=== PATIENT | female | born 1990 | race Asian ===

== ENCOUNTER 2016-08-12 08:57 | Emergency (ER) | payer OTHER ==
[2016-08-12 09:34] VITALS: BP 106/60
--- NOTE | 2016-08-12 09:42 | ED ---
GI/ HPI - HPI Summary HPI Summary: 26 y/o female here c/o dysuria, urinary frequency and urgency for the last 2-3 days. She has increased her water intake but symptoms have worsen. She denies any abdominal pain, fever, chills, back pain, nausea or vomiting. She has no other complaints. LMP 3 days ago. She denies any vaginal bleeding or discharge. - History of Current Complaint Chief Complaint: UC Time Seen by Provider: 08/12/16 09:26 Stated Complaint: UTI Hx Obtained From: Patient Onset/Duration: Started Days Ago - 3 days ago Timing: Intermittent Severity: Moderate Current Severity: Moderate - Allergy/Home Medications Allergies/Adverse Reactions: Allergies Allergy/AdvReac Type Severity Reaction Status Date / Time aspirin Allergy Mild Rash Uncoded 08/12/16 09:17 PMH/Surg Hx/FS Hx/Imm Hx Endocrine/Hematology History: Denies: Hx Diabetes, Hx Thyroid Disease Cardiovascular History: Denies: Hx Hypertension Respiratory History: Denies: Hx Asthma, Hx Chronic Obstructive Pulmonary Disease (COPD) GI History: Denies: Hx Ulcer Infectious Disease History: No Infectious Disease History: Denies: Hx Hepatitis, Hx Human Immunodeficiency Virus (HIV), Traveled Outside the in Last 30 Days - Social History Alcohol Use: Occasionally Substance Use Type: Reports: None Smoking Status (MU): Never Smoked Tobacco Review of Systems Constitutional: Negative Eyes: Negative ENT: Negative Cardiovascular: Negative Respiratory: Negative Gastrointestinal: Negative Genitourinary: Negative Positive: burning, dysuria Musculoskeletal: Negative Skin: Negative Neurological: Negative Psychological: Normal All Other Systems Reviewed And Are Negative: Yes Physical Exam - Summary Physical Exam Summary: Vital signs: reviewed General: Patient is comfortable lying in stretcher with no signs of distress HEENT: within normal limits Lungs: CTA B/L CVS: S1 & S2 present. No murmurs appreciated. ABDOMEN: Soft, non-tender. No signs of distention. No rebound no guarding, and no masses palpated. Bowel sounds are normal. EXTREMITIES: FROM in all major joints, no edema, no cyanosis or clubbing. NEURO: Alert and oriented x 3. No acute neurological deficits. Speech is normal and follows commands. SKIN: Dry and warm Triage Information Reviewed: Yes Vital Signs On Initial Exam: Initial Vitals Temp Pulse Resp BP Pulse Ox 98.6 F 68 18 106/60 98 08/12/16 09:11 08/12/16 09:11 08/12/16 09:11 08/12/16 09:11 08/12/16 09:11 Vital Signs Reviewed: Yes Diagnostics - Vital Signs Vital Signs Temp Pulse Resp BP Pulse Ox 08/12/16 09:11 98.6 F 68 18 106/60 98 - Laboratory Lab Results: Lab Results 08/12/16 Range/Units 09:23 POC Urine Color Yellow POC Urine Clarity Clear POC Urine pH 7.0 (5-9) POC Ur Specif Costa 1.010 (1.010-1.030) POC Urine Protein Negative (Negative) POC Ur Glucose (UA) Negative (Negative) POC Urine Ketones Negative (Negative) POC Urine Blood 2+ H (Negative) POC Urine Nitrite Negative (Negative) POC Urine Bilirubin Negative (Negative) POC Urine Urobilinogen 0.2 (Negative) POC U Leukocyte Esteras 2+ H (Negative) Lab Statement: Any lab studies that have been ordered have been reviewed, and results considered in the medical decision making process. GIGU Course/Dx - Course Assessment/Plan: 26 y/o female here c/o dysuria, urinary frequency and urgency for the last 2-3 days. She has increased her water intake but symptoms have worsen. She denies any abdominal pain, fever, chills, back pain, nausea or vomiting. She has no other complaints. LMP 3 days ago. She denies any vaginal bleeding or discharge. UA shows lekocytes positive and because of the symptoms patient will be given a Rx Bactrim and discharged home with F/U of PCP. I discussed all the findings and test results with the patient. Patient was instructed to return to the emergency room immediately if any of the symptoms return or worsens. Plan of care was discussed with the patient and understands and agrees. All questions were answered at patient satisfaction. There were no further complaints or concerns. Lung exam before discharge: CTA B/L. Good air exchange. No wheezing or crackles heard. CVS: S1 and S2 present. No murmurs appreciated. Patient is alert and oriented x 3. Patient is hemodynamically stable. 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
== END 2016-08-12 09:45 | disposition home or self-care (01) ==
LOC: UCEAST 08:57
DX: N39.0 Urinary tract infection, site not specified (principal); Z88.6 Allergy status to analgesic agent
CPT/HCPCS: 81003; 99212; G0463